=== PATIENT | female | born 1980 | race Caucasian/White ===

== ENCOUNTER 2023-10-04 12:55 | Emergency (ER) | payer OTHER, SELFPAY ==
[2023-10-04 13:17] VITALS: BP 115/87
[2023-10-04 13:37] LABS: % Basophils 0.4 % (0-2); % Eosinophils 0.1 % (0-6); % Immature Granulocytes 0.4 % (0-0.5); % Lymphocytes 10.3 % (20.5-51.1); % Monocytes 4.8 % (1.7-9.3); Absolute Monocytes 0.5 10^3/uL (0.1-0.6); Absolute Neutrophils 8.4 10^3/uL (1.4-6.5); Hematocrit 38.7 % (37.0-47.0); Hemoglobin 12.8 g/dL (12.0-16.0); Mean Corp Hgb Conc. 33.1 g/dL (33.0-37.0); Mean Corpuscular Volume 90.6 fL (81.0-99.0); Mean Platelet Volume 9.8 fL (7.4-10.4); Nucleated Red Blood Cells % 0 %; Platelet Count 282 10^3/uL (130-400); Red Blood Cell Count 4.27 10^6/uL (4.20-5.40); Red Cell Dist. Width 12.9 % (11.5-14.5)
[2023-10-04 13:47] LABS: HCG, Serum Qualitative Screen Negative
[2023-10-04 13:49] LABS: ALT (SGPT) 14 U/L (0-35); AST (SGOT) 21 U/L (14-36); Albumin 4.4 g/dl (3.5-5.0); Alkaline Phosphatase 99 U/L (38-126); Blood Urea Nitrogen 11 mg/dl (7-17); Calcium 9.7 mg/dl (8.4-10.2); Carbon Dioxide 21 mmol/L (22-30); Chloride 105 mmol/L (98-107); Glucose 96 mg/dl (70-99); Potassium 4.2 mmol/L (3.5-5.1); Sodium 136 mmol/L (135-145); Total Bilirubin 1.1 mg/dl (0.2-1.3); Total Protein 6.6 g/dl (6.3-8.2); eGFR > 60.00
[2023-10-04 14:21] LABS: Lipase 47 U/L (23-300)
--- NOTE | 2023-10-04 16:29 | ED.GENMED ---
History of Present Illness
General
Chief Complaint: Abdominal Pain
Source: patient
Exam Limitations: none
Time Seen by Provider: 10/04/23 16:16
Travel History
Have you had any contact with someone who has COVID-19?: No
Do you have any symptoms of coronavirus? Fever > 100 degrees, chills, cough, shortness of breath, sore throat, loss of taste or smell, muscle aches, or headache?: No
History of Present Illness
History of Present Illness:
43-year-old otherwise healthy female presents with sudden onset lower abdominal pain that started last evening that since then the pain is localized more so to the right lower abdomen. Its constant with associated decreased appetite. Is quite
lower in her abdomen. She does not have any flank pain or urinary symptoms. Last menstrual cycle was a week ago and was normal. She cannot identify any aggravating or alleviating factors. No flank pain. No other complaints at this time
Phy Exam
Physical Exam
Physical Exam:
General: Well-appearing female no acute respiratory distress
HEENT: Normocephalic atraumatic heart: Regular rate and rhythm no murmurs
Lungs: Clear no wheeze or rales
Abdomen soft tender to the suprapubic and right lower abdomen no guarding rebound normal bowel sounds no costovertebral angle tenderness
Extremities: No cyanosis or edema skin: Warm no rash
Course
Orders/Labs/Results
Orders:
Orders
10/04/23 13:20
Test Result ONCE
10/04/23 13:27
Complete Blood Count/With Diff Urgent
Comprehensive Metabolic Panel Urgent
HCG, Serum Qualitative Screen Urgent
Lipase Urgent
10/04/23 16:25
Iohexol [Omnipaque] See Protocol PO NOW STA
US Pelvis W Transvag Combined Urgent
Comment:
Reason For Exam: rlq pain
Abnormal Lab Results
10/04/23
13:27
Absolute Neuts (auto) 8.4 H 10^3/uL
(1.4-6.5)
Absolute Lymphs (auto) 1.0 L 10^3/uL
(1.2-3.4)
Neutrophils % 84.0 H %
(42.2-75.2)
Lymphocytes % 10.3 L %
(20.5-51.1)
Carbon Dioxide 21 L mmol/L
(22-30)
10/04/23 13:27
10/04/23 13:27
Vital Signs
Initial and Last Documented VS:
Initial Vital Signs
Temp Pulse Resp BP Pulse Ox
99.4 F 90 18 115/87 100
10/04/23 13:17 10/04/23 13:17 10/04/23 13:17 10/04/23 13:17 10/04/23 13:17
Last Documented Vital Signs
Temp Pulse Resp BP Pulse Ox
99.4 F 90 18 115/87 100
10/04/23 13:17 10/04/23 13:17 10/04/23 13:17 10/04/23 13:17 10/04/23 13:17
MDM/Problems Addressed
Differential Diagnosis Includes:
Sudden onset lower right abdominal pain. Consider torsion versus ruptured cyst versus appendicitis versus renal colic
Labs through triage were checked which shows a normal white blood cell count test is negative do not suspect ectopic . Patient does feel like she has to void will order pelvic ultrasound and have her start drinking Omnipaque. In
the event of negative ultrasound consider CT of the abdomen to look at the appendix. Offered medicine for discomfort however patient declined at this time
*Critical Care Note
Total Time (30-74mins, 75-104mins- exclusive of procedures): Not Applicable
Update Note
Update Note:
Ultrasound demonstrates probable hemorrhagic bilateral ovarian cysts. Patient's pain was sudden in onset her white count was normal. Patient was drinking oral contrast in the event that the ultrasound was negative however I feel the ultrasound
results would explain the patient's sudden onset lower pain with a ruptured ovarian cyst. Recommended NSAIDs and gynecology follow-up. No indication for CAT scan at this time. Stable for discharge
ED Attending Note
-
Portions of this chart may have been created with voice recognition software.� Occasional wrong word or��sound alike� substitutions may have occurred due to the inherent limitations of voice recognition software.
Discharge Plan
Departure
Patient Disposition: Home (Routine Discharge)
Date of Disposition: 10/04/23
Time of Disposition: 18:19
Patient with high blood pressure during this ER visit?: No
Discharge Problem:
Ovarian cyst
Instructions: Ovarian Cyst ED
Referrals:
Kate Noonan PA-C [Family Provider] -
Activity Restrictions/Additional Instructions:
You may use ibuprofen or Tylenol for pain. As discussed there are 6 ovarian cyst that have ruptured. The source of your pain. Follow-up with your gynecology for repeat ultrasound to ensure resolution of the cyst
Interventions
Interventions:
*Risk Screen - Suicide Last Done: 10/04/23 13:17
*General Assessment Last Done: 10/04/23 13:17
*Neglect/Abuse Screening Last Done: 10/04/23 13:17
*ED COVID-19 Vaccine History Last Done: 10/04/23 13:17
AS-Sfvmpc-Fqglpjtdev Assessment Last Done: 10/04/23 18:01
Discharge Date and Time
Print Language: LATVIAN
[2023-10-04] MEDS: OMNIPAQUE 50 ML PO (16:32)
== END 2023-10-04 18:39 | disposition home or self-care (01) ==
LOC: EMR 12:55
PROVIDERS: Emergency Medicine; EMERGENCY PHYSICIAN Student in an Organized Health Care Education/Training Program; FAMILY PHYSICIAN Physician Assistant
DX: N83.201 Unspecified ovarian cyst, right side (principal)
CPT/HCPCS: 99284; 76830; 76856; 80053; 83690; 84703; 85025